=== PATIENT | male | born 1940 | race Caucasian/White ===

== ENCOUNTER 2022-05-21 14:09 | Emergency (ER) | payer MEDICARE, MEDICAID ==
[2022-05-21 15:24] LABS: ESTIMATED GFR 77 mL/min (>60)
[2022-05-21] MEDS ORDERED: methylPREDNISolone Sodium Succinate 125 MG/2 ML SDV IM ONE (15:46)
[2022-05-21] MEDS: Albuterol/Ipratropium 3.0-0.5 MG/3 ML Neb Soln NEB STA ×2 (15:50→18:54)
[2022-05-21] MEDS ORDERED: Amoxicillin/Clavulanate K 875-125 MG Tab PO ONE (16:29)
[2022-05-21] MEDS ORDERED: Albuterol/Ipratropium 3.0-0.5 MG/3 ML Neb Soln NEB ONE (16:30)
== END 2022-05-21 17:30 | disposition home or self-care (01) ==
LOC: FB.ED 14:09
DX: J18.9 Pneumonia, unspecified organism (principal); J44.1 Chronic obstructive pulmonary disease with (acute) exacerbation; I11.0 Hypertensive heart disease with heart failure; I50.9 Heart failure, unspecified; J44.9 Chronic obstructive pulmonary disease, unspecified; E11.9 Type 2 diabetes mellitus without complications; E66.9 Obesity, unspecified; Z68.43 Body mass index [BMI] 50.0-59.9, adult; Z79.899 Other long term (current) drug therapy; Z79.4 Long term (current) use of insulin
CPT/HCPCS: 36415; 71045; 80053; 83605; 83880; 84484; 85025; 87040; 87070; 87077; 87205; 94640; 96372; 99284; A9270; J2930; J7620

== ENCOUNTER 2022-07-17 08:43 | Emergency (ER) | payer MEDICARE, MEDICAID | END 2022-07-17 10:40 | disposition home or self-care (01) | LOC: FB.ED 08:43 | DX: R04.0 Epistaxis (principal); E78.00 Pure hypercholesterolemia, unspecified; I11.0 Hypertensive heart disease with heart failure; I50.9 Heart failure, unspecified; J44.9 Chronic obstructive pulmonary disease, unspecified; E11.9 Type 2 diabetes mellitus without complications; E66.9 Obesity, unspecified; Z68.30 Body mass index [BMI] 30.0-30.9, adult; Z79.4 Long term (current) use of insulin | CPT/HCPCS: 30903; 99283-25 ==

== ENCOUNTER 2023-01-03 14:20 | Inpatient (IN) | payer MEDICARE, OTHER, MEDICAID ==
[2023-01-03] MEDS ORDERED: Albuterol/Ipratropium 3.0-0.5 MG/3 ML Neb Soln NEB ONE (14:50)
[2023-01-03 15:06] LABS: HEMATOCRIT 40.2 % (38.3-50.1); HEMOGLOBIN 12.9 g/dL (12.9-17.7); MEAN CORPUSCULAR VOLUME 84.4 fL (80.8-98.7); RED BLOOD CELL COUNT 4.76 x10(6)uL (3.90-5.90); RED CELL DISTRIBUTION WIDTH 17.8 % (12.4-15.0); WHITE BLOOD CELL COUNT,WBC 16.4 x10-3/uL (3.2-10.1)
[2023-01-03 15:11] LABS: BLOOD UREA NITROGEN,BUN 21 mg/dL (7-18); BUN/CREATININE RATIO 17.5 (9-20); CALCIUM 8.5 mg/dL (8.6-10.2); CARBON DIOXIDE,CO2 31 mmol/L (21-32); CHLORIDE,CL 100 mmol/L (100-110); CREATININE 1.2 mg/dL (0.70-1.30); ESTIMATED GFR 61 mL/min (>60); GLUCOSE RANDOM 128 mg/dL (80-116); POTASSIUM,K 4.4 mmol/L (3.5-5.3); SODIUM,NA 137 mmol/L (135-145)
[2023-01-03] MEDS ORDERED: Acetaminophen 325 MG Tab PO PRN (16:22)
[2023-01-03] MEDS ORDERED: Albuterol/Ipratropium 3.0-0.5 MG/3 ML Neb Soln INH PRN (16:22)
[2023-01-03] MEDS ORDERED: Sodium Chloride 0.9% 10 ML Syringe FLUSH PRN (16:22)
[2023-01-03 16:51] LABS: BASE EXCESS ARTERIAL,POC 4 mmol/L (-2 - 3+); HCO3 ARTERIAL,POC 30 mmol/L (21-28); O2 SATURATION ARTERIAL,POC 89.4 % (94-98); PO2 ARTERIAL,POC 58 mmHg (83-108)
[2023-01-03] MEDS: methylPREDNISolone Sodium Succinate 125 MG/2 ML SDV IVPUSH SCH (17:00)
[2023-01-03] MEDS: cefTRIAXone 1 GM in Sodium Chloride 0.9% 50 ML IV SCH (17:06)
[2023-01-03] MEDS: Azithromycin 500 MG in Sodium Chloride 0.9% 250 ML IV SCH (17:15)
[2023-01-03] MEDS: Sodium Chloride 0.9% 1,000 ML IV SCH (17:15)
[2023-01-03] MEDS: Enoxaparin 40 MG/0.4 ML Syringe SUBCUT SCH (21:50)
[2023-01-03] MEDS ORDERED: Glucagon,Human Recombinant 1 MG Vial IM PRN (23:49)
[2023-01-03] MEDS ORDERED: 50% Dextrose in Water 50 ML Syringe IVPUSH PRN (23:49)
[2023-01-04] MEDS ORDERED: Insulin Glargine,Human Rec. Analog 100 Units/ML 3 ML Pen SUBCUT ONE (01:21)
[2023-01-04] MEDS: Insulin Glargine,Human Rec. Analog 100 Units/ML 3 ML Pen SUBCUT SCH ×2 (01:27→22:19)
[2023-01-04] MEDS: Sodium Chloride 0.9% 1,000 ML IV SCH (01:32)
[2023-01-04] MEDS: methylPREDNISolone Sodium Succinate 125 MG/2 ML SDV IVPUSH SCH (05:39)
[2023-01-04] MEDS ORDERED: Glucagon,Human Recombinant 1 MG Vial IM PRN (09:59)
[2023-01-04] MEDS ORDERED: 50% Dextrose in Water 50 ML Syringe IVPUSH PRN (09:59)
[2023-01-04] MEDS ORDERED: Pantoprazole 40 MG Vial IVPUSH SCH (10:00)
[2023-01-04] MEDS ORDERED: Fluticasone NASAL Spray 16 GM Bottle NASBOTH PRN (10:01)
[2023-01-04] MEDS ORDERED: Cyclobenzaprine 10 MG Tab PO PRN (10:01)
[2023-01-04] MEDS ORDERED: Formoterol/Mometasone 200-5 MCG 8.8 GM Inhaler IH PRN (10:01)
[2023-01-04] MEDS ORDERED: Furosemide 20 MG Tab PO PRN (10:01)
[2023-01-04] MEDS ORDERED: Bisacodyl 10 MG Supp RECTAL PRN (10:01)
[2023-01-04] MEDS ORDERED: guaiFENesin 100 MG/5 ML Soln 5 ML UD Cup PO PRN (10:01)
[2023-01-04] MEDS ORDERED: Loperamide 2 MG Cap PO PRN (10:01)
[2023-01-04] MEDS ORDERED: Insulin Lispro 100 Unit/ML 3 ML KwikPen SUBCUT ONE ×2 (10:41→22:03)
[2023-01-04] MEDS: Lisinopril 2.5 MG Tab PO SCH (10:51)
[2023-01-04] MEDS: Metoprolol Succinate 25 MG Tab.ER PO SCH (10:51)
[2023-01-04] MEDS: Sertraline 25 MG Tab PO SCH (10:51)
[2023-01-04] MEDS: Potassium Chloride 10 MEQ Tab.ER PO SCH (10:53)
[2023-01-04] MEDS: Finasteride 5 MG Tab PO SCH (10:53)
[2023-01-04] MEDS: Insulin Lispro 100 Unit/ML 3 ML KwikPen SUBCUT SCH ×2 (11:47→17:33)
[2023-01-04] MEDS: Furosemide 20 MG Tab PO SCH (14:23)
[2023-01-04] MEDS: cefTRIAXone 1 GM in Sodium Chloride 0.9% 50 ML IV SCH (15:45)
[2023-01-04] MEDS: Enoxaparin 40 MG/0.4 ML Syringe SUBCUT SCH (16:01)
[2023-01-04] MEDS: Azithromycin 500 MG in Sodium Chloride 0.9% 250 ML IV SCH (16:16)
[2023-01-05 06:39] LABS: HEMATOCRIT 39.8 % (38.3-50.1); HEMOGLOBIN 12.6 g/dL (12.9-17.7); MEAN CORPUSCULAR HEMOGLOBIN 26.9 pg (27.0-33.3); MEAN CORPUSCULAR HGB CONC 31.7 g/dL (28.7-35.3); MEAN PLATELET VOLUME 8.9 fL (6.7-11.0); PLATELET COUNT,PLT 356 x10(3)uL (117-477); RED BLOOD CELL COUNT 4.68 x10(6)uL (3.90-5.90); RED CELL DISTRIBUTION WIDTH 17.8 % (12.4-15.0); WHITE BLOOD CELL COUNT,WBC 17.8 x10-3/uL (3.2-10.1)
[2023-01-05 06:47] LABS: BLOOD UREA NITROGEN,BUN 34 mg/dL (7-18); BUN/CREATININE RATIO 30.9 (9-20); CALCIUM 8.7 mg/dL (8.6-10.2); CARBON DIOXIDE,CO2 29 mmol/L (21-32); CHLORIDE,CL 104 mmol/L (100-110); CREATININE 1.1 mg/dL (0.70-1.30); EST CRCL DRUG DOSING (CG) 50.08 mL/min; ESTIMATED GFR 68 mL/min (>60); GLUCOSE RANDOM 291 mg/dL (80-116); MAGNESIUM 2.5 mg/dL (1.8-2.5); POTASSIUM,K 4.9 mmol/L (3.5-5.3); SODIUM,NA 137 mmol/L (135-145)
[2023-01-05 06:58] LABS: LYMPHOCYTES PERCENT MAN 11 % (13-37); MONOCYTES PERCENT MAN 1 % (4-12); SEG NEUTROPHILS PERCENT MAN 88 % (46-82)
[2023-01-05] MEDS ORDERED: predniSONE 20 MG Tab PO SCH (08:00)
[2023-01-05] MEDS ORDERED: Formoterol/Mometasone 200-5 MCG 8.8 GM Inhaler IH PRN (09:00)
[2023-01-05] MEDS: Insulin Lispro 100 Unit/ML 3 ML KwikPen SUBCUT SCH ×3 (09:41→17:53)
[2023-01-05] MEDS: Lisinopril 2.5 MG Tab PO SCH (09:43)
[2023-01-05] MEDS: Potassium Chloride 10 MEQ Tab.ER PO SCH (09:43)
[2023-01-05] MEDS: Metoprolol Succinate 25 MG Tab.ER PO SCH (09:44)
[2023-01-05] MEDS: Finasteride 5 MG Tab PO SCH (09:44)
[2023-01-05] MEDS: Sertraline 25 MG Tab PO SCH (09:47)
[2023-01-05] MEDS: Furosemide 40 MG Tab PO SCH (09:47)
[2023-01-05] MEDS ORDERED: Fluticasone NASAL Spray 16 GM Bottle NASBOTH PRN (10:00)
[2023-01-05] MEDS: Pantoprazole 40 MG Tab.CR PO SCH (10:31)
[2023-01-05] MEDS: Furosemide 20 MG Tab PO SCH (14:21)
[2023-01-05] MEDS: Enoxaparin 40 MG/0.4 ML Syringe SUBCUT SCH (16:22)
[2023-01-05] MEDS: Azithromycin 500 MG in Sodium Chloride 0.9% 250 ML IV SCH (16:38)
[2023-01-05] MEDS ORDERED: cefTRIAXone 1 GM Vial IVPUSH SCH (16:45)
[2023-01-05] MEDS ORDERED: Glucagon,Human Recombinant 1 MG Vial IM PRN ×3 (17:27→23:08)
[2023-01-05] MEDS ORDERED: Insulin Lispro 100 Unit/ML 3 ML KwikPen SUBCUT ONE ×2 (17:30→23:09)
[2023-01-05] MEDS: Insulin Glargine,Human Rec. Analog 100 Units/ML 3 ML Pen SUBCUT SCH (20:50)
[2023-01-05] MEDS ORDERED: 50% Dextrose in Water 50 ML Syringe IVPUSH PRN (23:08)
[2023-01-06] MEDS: Pantoprazole 40 MG Tab.CR PO SCH (05:25)
[2023-01-06 06:34] LABS: BASOPHILS ABSOLUTE AUTO 0.1 x10-3/uL (0.0-0.3); BASOPHILS PERCENT AUTO 0.5 % (0.3-3.8); EOSINOPHILS ABSOLUTE AUTO 0.1 x10-3/uL (0.0-0.6); EOSINOPHILS PERCENT AUTO 0.6 % (0.1-6.8); HEMATOCRIT 40.6 % (38.3-50.1); LYMPHOCYTES ABSOLUTE AUTO 2.6 x10-3/uL (0.5-4.5); LYMPHOCYTES PERCENT AUTO 18.3 % (15.8-45.3); MEAN CORPUSCULAR HEMOGLOBIN 27.2 pg (27.0-33.3); MEAN CORPUSCULAR HGB CONC 32.2 g/dL (28.7-35.3); MEAN CORPUSCULAR VOLUME 84.7 fL (80.8-98.7); MEAN PLATELET VOLUME 8.4 fL (6.7-11.0); MONOCYTES ABSOLUTE AUTO 1.1 x10-3/uL (0.0-1.2); MONOCYTES PERCENT AUTO 7.7 % (5.5-15.2); NEUTROPHILS ABSOLUTE AUTO 10.5 x10-3/uL (1.7-6.9); NEUTROPHILS PERCENT AUTO 72.9 % (40.3-71.8); PLATELET COUNT,PLT 375 x10(3)uL (117-477); RED BLOOD CELL COUNT 4.79 x10(6)uL (3.90-5.90); RED CELL DISTRIBUTION WIDTH 17.2 % (12.4-15.0); WHITE BLOOD CELL COUNT,WBC 14.3 x10-3/uL (3.2-10.1)
[2023-01-06 06:37] LABS: BLOOD UREA NITROGEN,BUN 35 mg/dL (7-18); CALCIUM 8.5 mg/dL (8.6-10.2); CARBON DIOXIDE,CO2 33 mmol/L (21-32); CHLORIDE,CL 105 mmol/L (100-110); EST CRCL DRUG DOSING (CG) 55.08 mL/min; ESTIMATED GFR 76 mL/min (>60); GLUCOSE RANDOM 138 mg/dL (80-116); SODIUM,NA 143 mmol/L (135-145)
[2023-01-06] MEDS: Amoxicillin/Clavulanate K 875-125 MG Tab PO SCH ×2 (08:37→20:49)
[2023-01-06] MEDS: predniSONE 20 MG Tab PO SCH (08:38)
[2023-01-06] MEDS: Finasteride 5 MG Tab PO SCH (08:38)
[2023-01-06] MEDS: Potassium Chloride 10 MEQ Tab.ER PO SCH (08:39)
[2023-01-06] MEDS: Metoprolol Succinate 25 MG Tab.ER PO SCH (08:39)
[2023-01-06] MEDS: Lisinopril 2.5 MG Tab PO SCH (08:39)
[2023-01-06] MEDS: Sertraline 25 MG Tab PO SCH (08:39)
[2023-01-06] MEDS: Furosemide 40 MG Tab PO SCH (08:40)
[2023-01-06] MEDS: Insulin Lispro 100 Unit/ML 3 ML KwikPen SUBCUT SCH ×3 (09:13→18:06)
[2023-01-06] MEDS ORDERED: Azithromycin 500 MG Tab PO ONE (14:00)
[2023-01-06] MEDS: Furosemide 20 MG Tab PO SCH (14:06)
[2023-01-06] MEDS: Enoxaparin 40 MG/0.4 ML Syringe SUBCUT SCH (16:48)
[2023-01-06] MEDS: Insulin Glargine,Human Rec. Analog 100 Units/ML 3 ML Pen SUBCUT SCH (20:49)
[2023-01-07] MEDS: Pantoprazole 40 MG Tab.CR PO SCH (05:42)
[2023-01-07 06:46] LABS: BASOPHILS PERCENT AUTO 0.3 % (0.3-3.8); BLOOD UREA NITROGEN,BUN 35 mg/dL (7-18); CALCIUM 8.4 mg/dL (8.6-10.2); CARBON DIOXIDE,CO2 36 mmol/L (21-32); CHLORIDE,CL 104 mmol/L (100-110); EOSINOPHILS ABSOLUTE AUTO 0.1 x10-3/uL (0.0-0.6); EOSINOPHILS PERCENT AUTO 0.8 % (0.1-6.8); EST CRCL DRUG DOSING (CG) 55.08 mL/min; ESTIMATED GFR 76 mL/min (>60); GLUCOSE RANDOM 85 mg/dL (80-116); HEMATOCRIT 42.1 % (38.3-50.1); HEMOGLOBIN 13.3 g/dL (12.9-17.7); LYMPHOCYTES PERCENT AUTO 26.5 % (15.8-45.3); MEAN CORPUSCULAR HEMOGLOBIN 26.8 pg (27.0-33.3); MEAN CORPUSCULAR HGB CONC 31.6 g/dL (28.7-35.3); MEAN CORPUSCULAR VOLUME 84.8 fL (80.8-98.7); MEAN PLATELET VOLUME 8.4 fL (6.7-11.0); MONOCYTES ABSOLUTE AUTO 0.9 x10-3/uL (0.0-1.2); MONOCYTES PERCENT AUTO 8.3 % (5.5-15.2); NEUTROPHILS ABSOLUTE AUTO 7.3 x10-3/uL (1.7-6.9); NEUTROPHILS PERCENT AUTO 64.1 % (40.3-71.8); PLATELET COUNT,PLT 364 x10(3)uL (117-477); POTASSIUM,K 3.9 mmol/L (3.5-5.3); RED BLOOD CELL COUNT 4.97 x10(6)uL (3.90-5.90); RED CELL DISTRIBUTION WIDTH 17.7 % (12.4-15.0); SODIUM,NA 144 mmol/L (135-145); WHITE BLOOD CELL COUNT,WBC 11.4 x10-3/uL (3.2-10.1)
[2023-01-07] MEDS ORDERED: predniSONE 20 MG Tab PO SCH (08:00)
[2023-01-07] MEDS: Potassium Chloride 10 MEQ Tab.ER PO SCH (08:44)
[2023-01-07] MEDS: Amoxicillin/Clavulanate K 875-125 MG Tab PO SCH (08:44)
[2023-01-07] MEDS: Sertraline 25 MG Tab PO SCH (08:44)
[2023-01-07] MEDS: predniSONE 20 MG Tab PO SCH (08:44)
[2023-01-07] MEDS: Furosemide 40 MG Tab PO SCH (08:45)
[2023-01-07] MEDS: Metoprolol Succinate 25 MG Tab.ER PO SCH (08:45)
[2023-01-07] MEDS: Finasteride 5 MG Tab PO SCH (08:45)
[2023-01-07] MEDS: Lisinopril 2.5 MG Tab PO SCH (08:46)
[2023-01-07] MEDS: Insulin Lispro 100 Unit/ML 3 ML KwikPen SUBCUT SCH ×2 (09:08→12:00)
== END 2023-01-07 13:28 | disposition home or self-care (01) | DRG 194 ==
LOC: FB.ED 14:20 → FB.MS 16:22
PROVIDERS: ADMIT Family Medicine; ATTEND Student in an Organized Health Care Education/Training Program
DX: J18.9 Pneumonia, unspecified organism (principal); J44.0 Chronic obstructive pulmonary disease with (acute) lower respiratory infection; J44.1 Chronic obstructive pulmonary disease with (acute) exacerbation; J45.41 Moderate persistent asthma with (acute) exacerbation; N13.8 Other obstructive and reflux uropathy; Z68.44 Body mass index [BMI] 60.0-69.9, adult; Z51.5 Encounter for palliative care; E66.01 Morbid (severe) obesity due to excess calories; N40.1 Benign prostatic hyperplasia with lower urinary tract symptoms; E78.2 Mixed hyperlipidemia; E11.9 Type 2 diabetes mellitus without complications; G47.33 Obstructive sleep apnea (adult) (pediatric); I11.0 Hypertensive heart disease with heart failure; H91.90 Unspecified hearing loss, unspecified ear; I50.9 Heart failure, unspecified; E78.00 Pure hypercholesterolemia, unspecified; E66.9 Obesity, unspecified; Z79.4 Long term (current) use of insulin; Z85.51 Personal history of malignant neoplasm of bladder; Z79.51 Long term (current) use of inhaled steroids; Z87.891 Personal history of nicotine dependence; Z79.899 Other long term (current) drug therapy
CPT/HCPCS: 36415; 71045; 71046; 80048; 82803; 82947; 83605; 83735; 83880; 85025; 85027; 86140; 94150; 94640; 96365; 96375; 97116-GP; 97161-GP; 97165-GO; 97530-GO; 99223; 99233; 99239; 99285; 99285-25; A9270-GY; C9113; J0456; J0696; J1650; J1815; J1815-GY; J2930; J3490; J7030; J7050; J7512; J7620